=== PATIENT | female | born 1985 | race Two or more races ===

== ENCOUNTER 2025-06-24 10:25 | Emergency (ER) | payer MEDICAID ==
[~2025-06-24] VITALS: Ht 165.1 cm; Wt 80.0 kg
[2025-06-24 10:27] VITALS: O2SAT 99
[2025-06-24] MEDS: ACETAMINOPHEN 500MG TABLET PO ONE (11:02)
[2025-06-24] MEDS: KETOROLAC 30MG/ML VIAL IM ONE (11:02)
[2025-06-24] MEDS ORDERED: DICL100G46 TP (11:57)
[2025-06-24] MEDS ORDERED: LIDO-53 TP (11:57)
[2025-06-24 12:31] VITALS: BP 135/70; PULSE 62; RESP 17; TEMP 36.9; O2SAT 99
== END 2025-06-24 12:32 | disposition home or self-care (01) ==
LOC: ER 10:25
DX: M25.562 Pain in left knee (principal); I10 Essential (primary) hypertension; M17.12 Unilateral primary osteoarthritis, left knee; Z88.1 Allergy status to other antibiotic agents; Z88.2 Allergy status to sulfonamides; W18.30XA Fall on same level, unspecified, initial encounter; Y93.89 Activity, other specified; Y92.89 Other specified places as the place of occurrence of the external cause; Y99.8 Other external cause status
CPT/HCPCS: 99283; 73562; 96372; J1885; A6449